=== PATIENT | female | born 1960 | race Caucasian/White ===

== ENCOUNTER → 2024-10-21 14:03 | Outpatient (REF) | payer MEDICARE, SELFPAY | LOC: RAD 14:03 | PROVIDERS: ATTENDING PHYSICIAN Physician Assistant | DX: R60.0 Localized edema (principal); M79.89 Other specified soft tissue disorders | CPT/HCPCS: 93971 ==

== ENCOUNTER → 2024-12-03 14:23 | Outpatient (REF) | payer OTHER, SELFPAY | LOC: EMG 14:23 | PROVIDERS: ATTENDING PHYSICIAN Orthopaedic Surgery Hand Surgery; FAMILY PHYSICIAN Physician Assistant | DX: M79.641 Pain in right hand (principal); G56.21 Lesion of ulnar nerve, right upper limb; G56.11 Other lesions of median nerve, right upper limb; G62.89 Other specified polyneuropathies | CPT/HCPCS: 95886; 95909 ==

== ENCOUNTER → 2024-12-13 14:20 | Outpatient (REF) | payer OTHER, SELFPAY | LOC: RAD 14:20 | PROVIDERS: ATTENDING PHYSICIAN Ophthalmology; REFERRING PHYSICIAN Physician Assistant | DX: H35.82 Retinal ischemia (principal) | CPT/HCPCS: 93880 ==

== ENCOUNTER 2024-12-13 23:58 | Observation (INO) | payer OTHER, SELFPAY ==
[2024-12-13 19:44] VITALS: BP 188/89
[2024-12-13 20:00] VITALS: BP 130/62
[2024-12-13 21:00] VITALS: BP 104/69
[2024-12-13 21:02] LABS: % Basophils 0.6 % (0-2); % Eosinophils 1.4 % (0-6); % Immature Granulocytes 0.4 % (0-0.5); % Lymphocytes 35.9 % (20.5-51.1); % Monocytes 6.3 % (1.7-9.3); % Neutrophils 55.4 % (42.2-75.2); Absolute Basophils 0.1 10^3/uL (0-0.2); Absolute Eosinophils 0.1 10^3/uL (0-0.7); Absolute Monocytes 0.5 10^3/uL (0.1-0.6); Absolute Neutrophils 4.6 10^3/uL (1.4-6.5); Hematocrit 40.1 % (37.0-47.0); Hemoglobin 13.3 g/dL (12.0-16.0); Mean Corp Hgb Conc. 33.2 g/dL (33.0-37.0); Mean Corpuscular Hgb 27.4 pg (27.0-31.0); Mean Corpuscular Volume 82.5 fL (81.0-99.0); Mean Platelet Volume 10.7 fL (7.4-10.4); Nucleated Red Blood Cells % 0 %; Platelet Count 207 10^3/uL (130-400); Red Blood Cell Count 4.86 10^6/uL (4.20-5.40); Red Cell Dist. Width 13.9 % (11.5-14.5); White Blood Cell Count 8.4 10^3/uL (4.8-10.8)
[2024-12-13 21:12] LABS: INR 0.96; PT 13.1 Sec (11.4-14.6)
[2024-12-13 21:13] LABS: APTT 24.8 Sec (23.4-35.0)
[2024-12-13] MEDS: NICODERM TRANSDERMAL 21 MG TRANSDERM (21:15)
[2024-12-13 21:18] LABS: ALT (SGPT) 20 U/L (0-35); AST (SGOT) 21 U/L (14-36); Albumin 4.2 g/dl (3.5-5.0); Alkaline Phosphatase 98 U/L (38-126); Blood Urea Nitrogen 16 mg/dl (7-17); Carbon Dioxide 26 mmol/L (22-30); Chloride 96 mmol/L (98-107); Glucose 356 mg/dl (70-99); Potassium 4.4 mmol/L (3.5-5.1); Sodium 134 mmol/L (135-145); Total Bilirubin 0.5 mg/dl (0.2-1.3); eGFR > 60.00
[2024-12-13 22:00] VITALS: BP 124/58
--- NOTE | 2024-12-13 22:51 | W.PN.UPDATE ---
Update Note
Progress Note Update
This note serves as an addendum to the H&P by customer support professional CIERRA
Shauna DIETERICK
HPI
64F HX current heavy smoker, HTN, HLD, DM, seen at ER
- presenting with left eye visual changes for the past 2 months.
- was seen by a retinal specialist who diagnosed her with central vein occlusion.
- HX left endarterectomy, primary opthalmologist repeated carotid duplex today POS occlusion of left ICA
- refer to ER for Vascular surgery evalaution
ROS
NIH 0
PHX: as above
Reviewed VS:
Vital Signs
Temp Pulse Resp BP Pulse Ox
98.2 F 80 21 124/58 95
12/13/24 19:44 12/13/24 22:30 12/13/24 22:30 12/13/24 22:00 12/13/24 22:30
PE
Gen: Anxious
HEENT:symmetric face
Neck: supple
Lungs: CTA
Cor: RRR S1 S2
Abdomen: benign
COMMUNITY SERVICES MANAGER: AAO3, NFND
MS: no edma
Psych: emotinally labile and anxious
Data
nl CBC
unremarkable BMP
US Cerebrovascular
- Technically challenging examination.
- Right carotid: Scattered plaques within the bulb and proximal ICA. Any stenosis is less than 50% based upon velocity criteria.
- Left carotid: Occluded internal carotid artery; this is a new finding compared to the prior study from 2016.
- Antegrade flow within both vertebral arteries. Bilateral external carotid artery stenoses.
CT Head W/o Iv Contrast
- No acute intracranial abnormality noted.
- Minor chronic microvascular white matter ischemic disease.
- Mild atrophy.
Last hospitalist admission: 2014
ASSESSMENT & PLAN
Abnormal Lt eye vision for 2 months ; subacute vs chronic
Lt central vein occlusion
Occluded Lt ICA
HX Lt endarterectomy
Zero NIH
- ASA 325 mg loading and then daily for
- Vascular consult await input for Heparin gtt or what not
IrDMT2 HX
- c/w Jardiance, Metformin , Tresiba
- add ISS low
Essential HTN
- c/w Losartan
HLD
- c/w Rosuvastatin
Depression
- c/w Effexor XR
DVT Px: SCD
Full code
Obs TLM
--- NOTE | 2024-12-13 23:18 | HPS.HSE ---
Family Physician
-
Family Physician:
Chief Complaint
-
Visual Disturbance
History of Present Illness
Patient is a 89 y/o female past medical history bilateral CVAs secondary to bilateral carotid artery stenosis, hypertension, hyperlipidemia, and diabetes mellitus who presents with visual disturbance. Patient reports left eye vision changes for
two months. She was seen by a retina specialist who diagnosed her with a central retinal vein occlusion. Today patient had an outpatient carotid ultrasound which revealed occlusion of left internal carotid artery. She was sent to the emergency
department for surgical evaluation.
Medical History
Past Medical History
Past Medical History: Reports Other
Additional Past Medical History:
Bilateral CVAs
Peripheral Artery Disease s/p Bilateral Carotid Endarterectomy
Essential Hypertension
Hyperlipidemia
Diabetes Mellitus, Type II
GERD
Depression
Restless Leg Syndrome
Past Surgical History: Reports Other
Additional Past Surgical History:
Bilateral Carotid Endarterectomy
Social History
Tobacco: Smoker (2 PPD)
Family History
Family History: Not pertinent
Allergies / Home Medications
Allergies reflects when Allergies were last updated in [facility].
Home Medications with original date entered in [facility]
Allergy/Medication List:
Allergies
Allergy/AdvReac Type Severity Reaction Status Date / Time
lisinopril Allergy dry cough Verified 12/13/24 19:44
pravastatin Allergy wrists, Verified 12/13/24 19:44
ankles,knees
weak ,sore
environmental Allergy Hives Uncoded 12/13/24 19:44
Home Medications
metformin 1,000 mg tablet 1,000 mg PO HS 10/19/15
omeprazole 20 mg capsule,delayed release 20 mg PO DAILY 10/19/15
venlafaxine 150 mg capsule,extended release 24 hr (Effexor XR) 150 mg PO DAILY 10/19/15
brimonidine 0.2 % eye drops 1 drp LEFT EYE TID 12/13/24
cetirizine 10 mg tablet 10 mg PO DAILY 12/13/24
dorzolamide 22.3 mg-timolol 6.8 mg/mL eye drops 1 drp LEFT EYE BID 12/13/24
empagliflozin 25 mg tablet (Jardiance) 25 mg PO DAILY 12/13/24
fluoxetine 20 mg capsule 20 mg PO DAILY 12/13/24
insulin degludec 200 unit/mL (3 mL) subcutaneous pen (Tresiba FlexTouch U-200 insulin) 90 unit SC HS 12/13/24
losartan 50 mg tablet 50 mg PO DAILY 12/13/24
ropinirole 2 mg tablet 2 mg PO HS 12/13/24
rosuvastatin 40 mg tablet 40 mg PO DAILY 12/13/24
therapeutic multivitamin 1 tab PO DAILY 12/13/24
venlafaxine 75 mg capsule,extended release 24 hr 75 mg PO DAILY 12/13/24
Review of Systems
-
A 12 point ROS was completed and negative except as noted: Yes
Constitutional: Denies Fever or Chills
Respiratory: Denies Cough or Trouble Breathing
Cardiac: Denies Chest Pain or Palpitations
Neurological: Reports See HPI and Other (Balance Difficulties)
Physical Exam
Vital Signs
Vital Signs
Temp Pulse Resp BP Pulse Ox
98.2 F 80 21 124/58 95
12/13/24 19:44 12/13/24 22:30 12/13/24 22:30 12/13/24 22:00 12/13/24 22:30
Physical Exam
General: Comfortable and Conversant
HEENT: Anicteric, Moist mucous membranes and Other (Anisocoria with Left pupil notable larger than right )
Respiratory: Clear and Non Labored Respirations
Cardiac: S1/S2, Regular Rhythm and Murmur
GI: Soft and Non Tender
Rectal: Deferred by Provider
Musculoskeletal: No Clubbing, No Cyanosis and No Edema
Skin: Warm and Dry
Neuro: Awake, Alert, Oriented and No Motor Deficits; No Slurred Speech or Facial Droop
Psych: Calm
Laboratory Results
-
12/13/24 20:46
12/13/24 20:46
Laboratory Results
PT 13.1 Sec (11.4-14.6) 12/13/24 20:46
INR 0.96 12/13/24 20:46
APTT 24.8 Sec (23.4-35.0) 12/13/24 20:46
Total Bilirubin 0.5 mg/dl (0.2-1.3) 12/13/24 20:46
AST 21 U/L (14-36) 12/13/24 20:46
ALT 20 U/L (0-35) 12/13/24 20:46
Alkaline Phosphatase 98 U/L (38-126) 12/13/24 20:46
Data Reviewed
-
CT Scan: Report Reviewed by me
Ultrasound: Report Reviewed by me
Lab Data: Labs Reviewed by me
Impression/Plan
-
Left Eye Visual Disturbance, subacute / chronic
Left Central Retinal Vein Occlusion
Left Internal Carotid Artery Occlusion
-Consult Vascular Surgery
-Start aspirin
Essential Hypertension
-Continue losartan
Hyperlipidemia
-Continue Crestor
Diabetes Mellitus, Type II
-Check HgbA1c
-Hold Metformin
-Continue Jardiance
-Continue Tresiba
-Monitor sugars and continue coverage insulin
GERD
-Continue Protonix
Depression
-Continue Fluoxetine and Effexor
Restless Leg Syndrome
-Continue ropinirole
Hx Bilateral Carotid Artery Stenosis s/p Bilateral Carotid Endarterectomy
DVT proph: SCDs
Code Status: Full Code
[2024-12-13] MEDS: LOW STRENGTH ASPIRIN 324 MG PO (23:35)
--- NOTE | 2024-12-14 00:31 | ED.GENMED ---
History of Present Illness
General
Chief Complaint: Visual Problem
Time Seen by Provider: 12/13/24 20:35
History of Present Illness
History of Present Illness:
64-year-old female presenting with visual changes to her left eye starting 2-month ago. Patient states that she is seen by her eye doctor, diagnosed with retinal vein occlusion. Patient states that her eye doctor ordered carotid ultrasound due to
history of carotid occlusion with endarterectomy which she completed today and showed occlusion of left internal carotid artery. Patient denies any numbness, weakness or tingling. Patient is not on blood thinners.
Past History
Past History
ED Past Medical History: CVA, GERD, HTN, Hypercholesterolemia, IDDM and Other (Restless leg syndrome, ' shift work sleep disorder', sleep apnea, Hiatel hernia, villegas's esophagus)
ED Past Surgical History: Other (L carotid surgery)
Social History
Tobacco: Former smoker
Alcohol: None
Personal: Single
Living: with family (parents)
Family History
Family History: Diabetes, Hypertension and CAD; Negative Asthma, Cancer or Sudden
Phy Exam
Physical Exam
Physical Exam:
General: Alert, no acute distress
Head: NCAT
Eyes: clear conjunctiva. Right pupil round and reactive. left pupil round, nonreactive which patient states is baseline for the past few months.
Neck: supple
Cardiac: regular rate and rhythm, no murmur
Lungs: clear to auscultation bilaterally. No wheezes, rales, or rhonchi. Speaking full unlabored sentences. No respiratory distress.
Abdomen: soft, nondistended nontender. No rebound or guarding.
MSK: no lower extremity edema bilaterally. No deformity
Skin: warm, dry
Neuro: Alert and oriented x3. Cranial nerves II through XII grossly intact no focal deficits. Normal finger-nose. 5-5 strength bilateral upper and lower extremities. No pronator drift bilateral upper lower extremities. Sensation intact. No
slurred speech. Vision intact
Course
Orders/Labs/Results
Orders:
Orders
12/13/24 20:46
Complete Blood Count/With Diff Urgent
Comprehensive Metabolic Panel Urgent
PT/INR [Prothrombin Time] Urgent
PTT Urgent
12/13/24 21:06
Nicotine [Nicoderm Transdermal] 21 mg .ROUTE .STK-MED ONE
12/13/24 21:09
Nicotine [Nicoderm Transdermal] 21 mg TRANSDERM DAILY
12/13/24 21:11
CT Head W/o Iv Contrast Urgent
Comment:
Reason For Exam: left eye visual changes, nonreactive pupil
12/13/24 21:13
Nicotine [Nicoderm Transdermal] 21 mg TRANSDERM ONCE STA
12/13/24 23:00
Flush (0.9% Sodium Chloride) [Flush (Nss)] See Dose Instructions IV PER PROTOCOL
12/13/24 23:05
Aspirin Chewable [Low Strength Aspirin] 324 mg PO NOW STA
12/13/24 23:07
Admit/Transfer Patient As Directed
Co-Sign Provider:
Level of Care: Observation services
Assign to:: Telemetry
Physician / Group: Brandyy
Diagnosis: left central retinal vein occlusion
Reason for Telemetry: Arrhythmia
Date to Stop Telemetry: 12/16/24
Time to Stop Telemetry: 11:00
PRN Pain Medication Management As Directed
May give lesser potent ordered pain med per pt: Yes
preference::
Protocol:: Medication orders for pain may be administered in a
manner that supports deferring to patient preference
when the pt is:
- Requesting an ordered lesser potent pain medication.
Least to most potent pain medications are defined
as: acetaminophen < NSAID < tramadol < opioids
(morphine, oxycodone, hydromorphone).
- Requesting a lesser dose of the same medication IF
ORDERED.
- Requesting a less intrusive route of administration
if both routes are prescribed by the provider (PO <
IV).
12/13/24 23:11
Code Status As Directed
Resuscitation Status: Full Code
12/14/24 00:31
Acetaminophen [Tylenol] 650 mg PO Q4HPRN PRN
Dextrose 50%-Water [Dextrose 50% Syringe] 12.5 grams IV [id number] PRN
Glucagon [GlucaGen] 1 mg IM PRN PRN
12/14/24 00:31
Vascular Surgery Consult Routine
Consulting Provider: Maria Del Rosario Salazar
Was physician already notified: Yes
Activity As Directed
Activity Level: Out of Bed-Early Mobility
With Assistance
Bedside Glucose Monitoring As Directed
Frequency: AC&HS
Additional Instructions:: Change to q6h if pt on TPN, tube feeding or not eating
Pneumatic Compression Sleeves As Directed
Type: Knee high
Vital Signs As Directed
Frequency: Per unit guidelines
Weight As Directed
Frequency: Daily
Smoking Cessation Counseling [RESP] Routine
Ot Eval And Treat Routine
Pt Eval And Treat Routine
Activity Level: Out of Bed-Early Mobility
DX Deep Vein Thrombosis Video Routine
12/14/24 06:00
Basic Metabolic Panel IN AM
Complete Blood Count/No Diff IN AM
Glycohemoglobin (HgbA1c) IN AM
Lipid Profile [Cardiovascular Evaluation] IN AM
12/14/24 07:30
Insulin Aspart Corrective Mod [Novolog Flexpen-Moderate Resistance] See Protocol SC AC
12/14/24 08:00
Aspirin Low Dose EC [Aspir Low (Enteric Coated)] 81 mg PO DAILY
Brimonidine [Alphagan 0.2% Eye Drops] 1 drop LEFT EYE TID
Cetirizine HCl [Zyrtec] 10 mg PO DAILY
Fluoxetine HCl [Prozac] 20 mg PO DAILY
Losartan [Cozaar] 50 mg PO DAILY
Nicotine [Nicoderm Transdermal] 21 mg TRANSDERM DAILY
Omeprazole Suspension [Prilosec Baby Oral Suspension] 20 mg PO DAILY
Rosuvastatin Calcium [Crestor] 40 mg PO DAILY
Timolol Maleate/Dorzolam HCl [Cosopt Eye Drops] 1 drop LEFT EYE BID
Venlafaxine Extended Release [Effexor Xr] 150 mg PO DAILY
Venlafaxine Extended Release [Effexor Xr] 75 mg PO DAILY
empagliflozin [Jardiance] 25 mg PO DAILY
12/14/24 Dinner
2000 calorie (17 carb) Diabetic
12/14/24 22:00
Ropinirole [Requip] 2 mg PO HS
insulin degludec [Tresiba FlexTouch U-200] 90 unit SC HS
12/16/24 11:00
DC Protocol for Telemetry ONCE
Abnormal Lab Results
12/13/24
20:46
MPV 10.7 H fL
(7.4-10.4)
Sodium 134 L mmol/L
(135-145)
Chloride 96 L mmol/L
(98-107)
Glucose 356 H mg/dl
(70-99)
12/13/24 20:46
12/13/24 20:46
Vital Signs
Initial and Last Documented VS:
Initial Vital Signs
Temp Pulse Resp BP Pulse Ox
98.2 F 87 20 188/89 99
12/13/24 19:44 12/13/24 19:44 12/13/24 19:44 12/13/24 19:44 12/13/24 19:44
Last Documented Vital Signs
Temp Pulse Resp BP Pulse Ox
98.2 F 80 21 124/58 95
12/13/24 19:44 12/13/24 22:30 12/13/24 22:30 12/13/24 22:00 12/13/24 23:37
MDM/Problems Addressed
MDM/Problems Addressed:
64-year-old female history of hypertension, hyperlipidemia, diabetes, current smoker, endarterectomy 10 years ago presenting with abnormal ultrasound. Patient had outpatient carotid ultrasound that showed occlusion of left internal carotid artery.
Patient has visual changes in her left eye for the past 2 months. Patient was advised to come to the emergency department for admission for further treatment. NIH stroke scale 0. Neurologically intact. CT head shows no acute intracranial
abnormality, minor chronic microvascular white matter ischemic disease. Labs reviewed, significant for hyperglycemia at 356 but not in DKA. Electrolytes within normal limits. Discussed with hospitalist for admission
*Critical Care Note
Total Time (30-74mins, 75-104mins- exclusive of procedures): Not Applicable
ED Attending Note
-
Portions of this chart may have been created with voice recognition software.� Occasional wrong word or��sound alike� substitutions may have occurred due to the inherent limitations of voice recognition software.
Discharge Plan
Departure
Patient Disposition: Admit
Date of Disposition: 12/13/24
Time of Disposition: 23:06
Presentation/result/management discussed w/ accepting MD/DO: Hospitalist
Discharge Problem:
Occlusion of left internal carotid artery
Interventions
Interventions:
*Risk Screen - Suicide Last Done: 12/13/24 20:47
*General Assessment Last Done: 12/13/24 19:44
*Neglect/Abuse Screening Last Done: 12/13/24 23:37
ED- Fall Risk Assessment Last Done: 12/13/24 23:37
*ED COVID-19 Vaccine History Last Done: 12/13/24 20:47
ED- Neurological Assessment Last Done: 12/13/24 23:48
ED-EENT Assessment Last Done: 12/13/24 23:37
ED Swallowing Screen Last Done: 12/13/24 20:57
[2024-12-14 00:54] VITALS: BP 132/73
[2024-12-14] MEDS: REQUIP 2 MG PO (01:31)
[2024-12-14 03:43] VITALS: BP 120/46
--- NOTE | 2024-12-14 05:38 | PTCARENOTE ---
Patient arrived on stretcher from ED. Patient ambulated from stretcher to bed. Patient oriented to room, bed put in lowest position, call puri in reach. Will continue to monitor.
[2024-12-14 07:29] VITALS: BP 135/52
[2024-12-14 07:40] LABS: Hematocrit 38.7 % (37.0-47.0); Mean Corp Hgb Conc. 33.6 g/dL (33.0-37.0); Mean Corpuscular Hgb 27.4 pg (27.0-31.0); Mean Corpuscular Volume 81.5 fL (81.0-99.0); Mean Platelet Volume 10.2 fL (7.4-10.4); Platelet Count 189 10^3/uL (130-400); Red Blood Cell Count 4.75 10^6/uL (4.20-5.40); Red Cell Dist. Width 13.7 % (11.5-14.5); White Blood Cell Count 7.5 10^3/uL (4.8-10.8)
--- NOTE | 2024-12-14 07:47 | W.PN.UPDATE ---
Update Note
Progress Note Update
64 yo F with history of bilateral CVAs and bilateral CEAs in 2014/2015 presents after being found her left ICA is occluded on duplex. She has not had surveillance imaging in many years but was recommended to have a carotid duplex after her
cake inspector diagnosed her with a left retinal vein occlusion for evaluation of visual disturbances. She has no other recent stroke like symptoms. Her prior symptoms consisted of right arm weakness which completely resolved.
On exam she is alert and oriented. no neuro deficits. speech clear. 5/5 strength bilaterally
I reviewed her imaging which consists of a carotid duplex. Her right carotid is patent. Her left common and external carotid arteries are patent but her ICA is occluded.
I discussed with her that I suspect her ICA occlusion is chronic at this point and has nothing to do with her retinal vein occlusion. As her carotid is 100% occluded there is no indication for any intervention. We discussed the importance of
surveillance imaging of her right side going forward. From a vascular standpoint she only otherwise needs maximal medical treatment for her cerebrovascular disease including asa, high dose statin, glucose and BP control.
[2024-12-14 08:09] LABS: Blood Urea Nitrogen 13 mg/dl (7-17); Calcium 8.9 mg/dl (8.4-10.2); Carbon Dioxide 28 mmol/L (22-30); Chloride 100 mmol/L (98-107); Glucose 154 mg/dl (70-99); HDL Cholesterol 35 mg/dl; LDL Cholesterol, Calculated 82 mg/dl; Potassium 3.8 mmol/L (3.5-5.1); Sodium 138 mmol/L (135-145); Total Cholesterol 160 mg/dl (50-199); Triglyceride 215 mg/dl (10-149); Very Low Density Lipoprotein 43 mg/dl (0-30); eGFR > 60.00
[2024-12-14] MEDS: EFFEXOR XR 150 MG PO (08:13)
[2024-12-14] MEDS: CRESTOR 40 MG PO (08:13)
[2024-12-14] MEDS: ASPIR LOW (ENTERIC COATED) 81 MG PO (08:13)
[2024-12-14] MEDS: COZAAR 50 MG PO (08:13)
[2024-12-14] MEDS: FARXIGA 10 MG PO (08:13)
[2024-12-14] MEDS: PROTONIX 40 MG PO (08:13)
[2024-12-14] MEDS: EFFEXOR XR 75 MG PO (08:14)
[2024-12-14] MEDS: ZYRTEC 10 MG PO (08:14)
[2024-12-14] MEDS: PROZAC 20 MG PO (08:14)
[2024-12-14] MEDS: COSOPT EYE DROPS 1 DROP LEFT EYE (08:14)
[2024-12-14] MEDS: ALPHAGAN 0.2% EYE DROPS 1 DROP LEFT EYE (08:14)
[2024-12-14 08:20] LABS: Glucose - Point of Care 147 mg/dl (70-99)
[2024-12-14 09:20] VITALS: BP 160/68; PULSE 63; O2SAT 97
--- NOTE | 2024-12-14 09:30 | PTOTSP ---
Patient demonstrates safe and independent mobility, no skilled physical therapy needs at this time.
[2024-12-14 11:15] VITALS: BP 124/55
[2024-12-14 12:15] LABS: Glycohemoglobin (HgbA1c) 11.1 % (4.0-5.6)
[2024-12-14 12:35] LABS: Glucose - Point of Care 231 mg/dl (70-99)
--- NOTE | 2024-12-14 12:46 | W.PN.HOSP.TC ---
Addendum entered and electronically signed by John Avery MD 12/14/24 15:41:
[id number]
Original Note:
Today's Communication/Plan
-
start asa
cont statin
f/u with vascular, neurology, endocrinology, pcp outpt
diabetic management - patient is working with outpatient pcp
f/u a1c and lipid panel outpt
Assessment / Plan
Assessment / Plan
Physical Exam
General: Comfortable and Conversant
HEENT: Anicteric, Moist mucous membranes and Other (Anisocoria with Left pupil notable larger than right )
Respiratory: Clear and Non Labored Respirations
Cardiac: S1/S2, Regular Rhythm and Murmur
GI: Soft and Non Tender
Rectal: Deferred by Provider
Musculoskeletal: No Clubbing, No Cyanosis and No Edema
Skin: Warm and Dry
Neuro: Awake, Alert, Oriented and No Motor Deficits; No Slurred Speech or Facial Droop
Psych: Calm
Left Eye Visual Disturbance, subacute / chronic
Left Central Retinal Vein Occlusion
Left Internal Carotid Artery Occlusion
-no new changes; did have cva 10 years ago apparently;
-Consult Vascular Surgery - chronic; ntd
-continue regular surveillance imaging of her right carotid going forward
-Start aspirin
-Cont crestor - already on highest dose
-educated on diet, medication compliance, diabetic control; insulin regimen, htn later
-f/u neurology, vascular outpt
Essential Hypertension
-Continue losartan
Hyperlipidemia
-Continue Crestor
Diabetes Mellitus, Type II
-Check HgbA1c - 11.6 - f/u
-Metformin
-Continue Jardiance
-Continue Tresiba
-Monitor sugars and continue coverage insulin
-Endocrinology f/u - stressed importance
-also about to start meal time insulin
GERD
-Continue Protonix
Depression
-Continue Fluoxetine and Effexor
Restless Leg Syndrome
-Continue ropinirole
#Tobacco use
-does not want to stop
-cessation advised, education given
Hx Bilateral Carotid Artery Stenosis s/p Bilateral Carotid Endarterectomy
f/u outpt vascular, neurology
DVT proph: SCDs
Code Status: Full Code
More than 30 minutes spent in discharge including
Final examination of the patient
Summarizing hospital stay
Instructions for continuing care to all relevant caregivers
Preparation of discharge records, prescriptions, and referral forms
Total time spent (36 in minutes):
Anticipated Discharge: Today
Subjective/Interval History
-
Date of Service: December 14, 2024
no acute changes
Objective Data
-
Labs:
Laboratory Results
12/14/24
07:29
WBC 7.5
Hgb 13.0
Hct 38.7
Plt Count 189
Sodium 138
Potassium 3.8
Chloride 100
Carbon Dioxide 28
BUN 13
Creatinine 0.6
Glucose 154 H
Calcium 8.9
Vital Signs:
Vital Signs
Temp Pulse Resp BP Pulse Ox
98.0 F 69 14 124/55 95
12/14/24 11:15 12/14/24 11:15 12/14/24 11:15 12/14/24 11:15 12/14/24 11:15
I&O
12/13/24 12/14/24 12/15/24
06:59 06:59 06:59
Intake Total 480 / 480
Balance 480 / 480
Review of Systems
-
History Source: Patient
All other systems: Not reviewed unless documented
Data Reviewed
-
CT Scan: Report Reviewed by me
Ultrasound: Report Reviewed by me
Labs: Labs Reviewed by me
--- NOTE | 2024-12-14 12:58 | W.DS.TRANS ---
DC Summary - Application Coordinator
-
Discharge Instructions:
Discharge Diagnosis/Procedures Left Eye Visual Disturbance, subacute / chronic
Left Central Retinal Vein Occlusion
Left Internal Carotid Artery Occlusion
Diet Low Fat,Low Cholesterol,Diabetic, Carb
Controlled
Activity As tolerated
Blood Work Hemoglobin A1c, lipid panel in 3 months
Instructions:
Stand-Alone Forms:
Changes to Home Medications: Yes
Discharge Medications:
DC Medications w/original date entered in [employer]
metformin 1,000 mg tablet 1,000 mg PO HS 10/19/15
omeprazole 20 mg capsule,delayed release 20 mg PO DAILY 10/19/15
venlafaxine 150 mg capsule,extended release 24 hr (Effexor XR) 150 mg PO DAILY 10/19/15
brimonidine 0.2 % eye drops 1 drp LEFT EYE TID 12/13/24
cetirizine 10 mg tablet 10 mg PO DAILY 12/13/24
dorzolamide 22.3 mg-timolol 6.8 mg/mL eye drops 1 drp LEFT EYE BID 12/13/24
empagliflozin 25 mg tablet (Jardiance) 25 mg PO DAILY 12/13/24
fluoxetine 20 mg capsule 20 mg PO DAILY 12/13/24
insulin degludec 200 unit/mL (3 mL) subcutaneous pen (Tresiba FlexTouch U-200 insulin) 90 unit SC HS 12/13/24
losartan 50 mg tablet 50 mg PO DAILY 12/13/24
ropinirole 2 mg tablet 2 mg PO HS 12/13/24
rosuvastatin 40 mg tablet 40 mg PO DAILY 12/13/24
therapeutic multivitamin 1 tab PO DAILY 12/13/24
venlafaxine 75 mg capsule,extended release 24 hr 75 mg PO DAILY 12/13/24
aspirin 81 mg tablet,delayed release 81 mg PO DAILY #30 tabs 12/14/24
Home Medication Changes
aspirin 81 mg tablet,delayed release 81 mg PO DAILY #30 tabs 12/14/24
Pending Results: No
--- NOTE | 2024-12-14 13:09 | PTCARENOTE ---
Pt refused Insulin coverage for MARTY Herrera MD aware.
--- NOTE | 2024-12-14 16:41 | CM ---
Alert awake oriented patient who lives alone in a 1 story home with 0 steps to enter. She is independent in driving and in all activities of daily living.MUSE letter pt did not sign.
No adaptive devices
Never had VN/SNF
Pharmacy [facility]
PLAN Home no needs
== END 2024-12-14 13:35 | disposition home or self-care (01) ==
LOC: 3 WEST ACU 23:58
PROVIDERS: Physician Assistant Medical; ADMITTING PHYSICIAN Internal Medicine; ATTENDING PHYSICIAN Internal Medicine; EMERGENCY PHYSICIAN Emergency Medicine; FAMILY PHYSICIAN Physician Assistant
DX: H53.9 Unspecified visual disturbance (principal); H34.8122 Central retinal vein occlusion, left eye, stable; I65.22 Occlusion and stenosis of left carotid artery; I10 Essential (primary) hypertension; E11.65 Type 2 diabetes mellitus with hyperglycemia; E78.00 Pure hypercholesterolemia, unspecified; G47.30 Sleep apnea, unspecified; G25.81 Restless legs syndrome; K21.9 Gastro-esophageal reflux disease without esophagitis; E11.51 Type 2 diabetes mellitus with diabetic peripheral angiopathy without gangrene; I67.82 Cerebral ischemia; G31.9 Degenerative disease of nervous system, unspecified; K44.9 Diaphragmatic hernia without obstruction or gangrene; F32.A Depression, unspecified; F17.210 Nicotine dependence, cigarettes, uncomplicated; Z86.73 Personal history of transient ischemic attack (TIA), and cerebral infarction without residual deficits; Z87.19 Personal history of other diseases of the digestive system; Z79.4 Long term (current) use of insulin; Z83.3 Family history of diabetes mellitus; Z82.49 Family history of ischemic heart disease and other diseases of the circulatory system; Z79.84 Long term (current) use of oral hypoglycemic drugs; Z88.8 Allergy status to other drugs, medicaments and biological substances; Z79.899 Other long term (current) drug therapy
CPT/HCPCS: 70450; 80048; 80053; 80061; 82962; 83036; 85025; 85027; 85610; 85730; 93880; 97162; 99284; 99406; G0378

== ENCOUNTER 2025-02-04 05:55 | Day surgery (SDC) | payer OTHER, SELFPAY ==
[2025-01-28 10:22] LABS: % Basophils 0.6 % (0-2); % Eosinophils 1.9 % (0-6); % Immature Granulocytes 0.3 % (0-0.5); % Lymphocytes 39.1 % (20.5-51.1); % Monocytes 7.1 % (1.7-9.3); Absolute Basophils 0.1 10^3/uL (0-0.2); Absolute Eosinophils 0.2 10^3/uL (0-0.7); Absolute Lymphocytes 3.1 10^3/uL (1.2-3.4); Absolute Monocytes 0.6 10^3/uL (0.1-0.6); Hematocrit 43.1 % (37.0-47.0); Hemoglobin 14.1 g/dL (12.0-16.0); Mean Corp Hgb Conc. 32.7 g/dL (33.0-37.0); Mean Corpuscular Hgb 27.2 pg (27.0-31.0); Mean Platelet Volume 10.9 fL (7.4-10.4); Nucleated Red Blood Cells % 0 %; Platelet Count 218 10^3/uL (130-400); Red Blood Cell Count 5.19 10^6/uL (4.20-5.40); Red Cell Dist. Width 14.4 % (11.5-14.5); White Blood Cell Count 7.9 10^3/uL (4.8-10.8)
[2025-01-28 10:38] LABS: Blood Urea Nitrogen 13 mg/dl (7-17); Calcium 9.4 mg/dl (8.4-10.2); Carbon Dioxide 30 mmol/L (22-30); Chloride 105 mmol/L (98-107); Glucose 132 mg/dl (70-99); Potassium 4.6 mmol/L (3.5-5.1); Sodium 142 mmol/L (135-145); eGFR > 60.00
[2025-01-28 13:56] VITALS: BMI 33.4
--- NOTE | 2025-01-28 15:57 | PTCARENOTE ---
Patients 01/28 A1C-11, Tiffanie @ Dr. Gay office notified
--- NOTE | 2025-01-29 14:33 | PTCARENOTE ---
Abn ECG, Dr. Dowell made aware, no further interventions requested.
[2025-02-04] VITALS (8 sets, daily range): BP systolic 113–162; BP diastolic 56–74; BMI 33.4
[2025-02-04 06:22] LABS: Glucose - Point of Care 160 mg/dl (70-99)
[2025-02-04] MEDS: TYLENOL 1000 MG PO (06:38)
[2025-02-04] MEDS: NORMOSOL-R/PLASMALYTE-A 1000 IV (06:39)
[2025-02-04 08:52] LABS: Glucose - Point of Care 168 mg/dl (70-99)
[2025-02-04] MEDS: DILAUDID 0.25 MG IV ×2 (08:54→09:11)
[2025-02-04] MEDS: DILAUDID 0.5 MG IV (09:25)
== END 2025-02-04 10:20 | disposition home or self-care (01) ==
LOC: SDS 05:55
PROVIDERS: ATTENDING PHYSICIAN Orthopaedic Surgery Hand Surgery; FAMILY PHYSICIAN Physician Assistant
DX: G56.21 Lesion of ulnar nerve, right upper limb (principal); G56.01 Carpal tunnel syndrome, right upper limb; M65.311 Trigger thumb, right thumb; M65.331 Trigger finger, right middle finger; G62.9 Polyneuropathy, unspecified
CPT/HCPCS: 64718; 26055 ×2; 64721; 36415; 80048; 82962; 83036; 85025; 93005

== ENCOUNTER → 2025-08-05 08:29 | Outpatient (REF) | payer OTHER, SELFPAY | LOC: RAD 08:29 | PROVIDERS: ATTENDING PHYSICIAN Specialist; FAMILY PHYSICIAN Physician Assistant | DX: I65.22 Occlusion and stenosis of left carotid artery (principal) | CPT/HCPCS: 93880 ==